=== PATIENT | female | born 1960 | race Caucasian/White ===

== ENCOUNTER → 2017-12-22 09:17 | Outpatient (CLI) | payer OTHER, SELFPAY ==
--- NOTE | 2017-12-22 | DI.MG.S_ITS ---
BILATERAL DIGITAL SCREENING MAMMOGRAM 3D/2D WITH CAD: 12/22/2017 CLINICAL: Routine screening. Comparison is made to exams dated: 09/23/2015 mammogram, 08/03/2014 mammogram, and 07/16/2013 mammogram - Located [facility]. There are scattered fibroglandular elements in both breasts. Current study was also evaluated with a Computer Aided Detection (CAD) system. No significant masses, calcifications, or other findings are seen in either breast. There has been no significant interval change. IMPRESSION: NEGATIVE There is no mammographic evidence of malignancy. A 1 year screening mammogram is recommended. This exam was interpreted at Station ID: [id number]. NOTE: For mammograms, a report in lay terms will be sent to the patient. Approximately 15% of breast malignancies will not be visualized mammographically. In the management of a palpable breast mass, a negative mammogram must not discourage biopsy of a clinically suspicious lesion. Electronically Signed By: Janie evans/shelley:12/25/2017 09:12:50 letter sent: Normal Exam ACR BI-RADS Category 1: Negative 3341F
== END ==
PROVIDERS: PCP Internal Medicine; Visit Provider Internal Medicine
DX: Z12.31 Encounter for screening mammogram for malignant neoplasm of breast (principal)
CPT/HCPCS: 77063; 77067

== ENCOUNTER → 2018-08-30 14:10 | Outpatient (CLI) | payer OTHER, MEDICAID, SELFPAY | PROVIDERS: PCP Internal Medicine; Visit Provider Nurse Practitioner Family | DX: M85.852 Other specified disorders of bone density and structure, left thigh (principal); Z78.0 Asymptomatic menopausal state | CPT/HCPCS: 77080 ==

== ENCOUNTER → 2019-05-08 16:02 | Outpatient (CLI) | payer OTHER, MEDICAID, SELFPAY ==
--- NOTE | 2019-05-08 | DI.ECHO.S_ITS ---
[facility] +---------+ : : [address] [place] [place] : : : : [id number] : : : : Phone: [phone]+ Echocardiogram Report + + :Name: NYDIA CUBA Study Date: 05/08/2019 Height: 68 in : :[facility] Weight: 167 lb : : Gender: Female BSA: 1.9 m2 : :: 1960 Age: 58 yrs BP: 165/105 mmHg: :Reason For Study: SOB : : Performed By: Ted Johnson : :Referring: TIM YANCEY : + + Interpretation Summary The ejection fraction is estimated to be 60-65%. There is no significant valvular heart disease. Procedure: A two-dimensional transthoracic echocardiogram with color flow and Doppler was performed. The study quality was technically good. There is no prior echocardiogram noted for this patient. The patient was in normal sinus rhythm during the exam. Left Ventricle: The left ventricle is normal in size. There is normal left ventricular wall thickness. The ejection fraction is estimated to be 60-65%. There are no focal wall motion abnormalities. Right Ventricle: The right ventricle is normal in size and function. Atria: The left atrium is mildly dilated. Right atrial size is normal. The interatrial septum is intact with no evidence for an atrial septal defect. Mitral Valve: The mitral valve is normal in structure and function. There is trace mitral regurgitation. Aortic Valve: The aortic valve is trileaflet. The aortic valve opens well. No aortic regurgitation is present. Tricuspid Valve: The tricuspid valve is normal in structure and function. No tricuspid regurgitation. Pulmonary artery pressures cannot be estimated because of the lack of a measurable TR jet velocity. Pulmonic Valve: The pulmonic valve is not well visualized. There is trace pulmonic regurgitation. Great Vessels: The aortic root is normal size. The ascending aorta is mildly enlarged. The pulmonary artery is normal size. The IVC is of normal diameter and collapses greater than 50% with a sniff. This suggests a low right atrial pressure of 3 mm Hg. Pericardium/ Pleura There is no pericardial effusion. There is no pleural effusion. MMode/2D Measurements & Calculations LVIDd: 4.6 cm LVOT diam: 2.1 cm LVIDs: 2.8 cm Ao root diam: 3.3 cm FS: 39.6 % Aortic Jxn: 2.7 cm EPSS: 0.25 cm asc Aorta Diam: 3.7 cm IVSd: 0.71 cm Ao Arch Diam (Prox Trans): 2.8 cm LVPWd: 0.65 cm LV spain. diameter/BSA (cm/m^2): 2.4 LV sys. diameter/BSA (cm/m^2): 1.5 LA dimension: 3.3 cm RA long axis: 4.6 cm LA A2 area: 22.2 cm2 RA area: 17.1 cm2 LA A4 area: 22.0 cm2 RA vol: 53.5 ml LA length (vol): 5.7 cm RA : 28.3 ml/m2 LA vol: 71.9 ml IVC diam: 2.0 cm LA vol index: 38.0 ml/m2 RVD1 (basal): 3.8 cm RVD2 (mid): 3.5 cm Doppler Measurements & Calculations Ao V2 max: 129.9 cm/sec LVOT Max John: 92.6 cm/sec Ao V2 mean: 96.3 cm/sec LV V1 max P.4 mmHg Ao max P.8 mmHg LV V1 VTI: 20.5 cm Ao mean P.1 mmHg SUNSHINE(I,D): 2.5 cm2 Ao V2 VTI: 27.2 cm SUNSHINE(V,D): 2.4 cm2 sev ratio: 0.75 SUNSHINE indexed to BSA (cm^2/m^2): 1.3 MV E max john: 84.7 cm/sec PA V2 max: 96.3 cm/sec MV A max john: 70.6 cm/sec PA V2 mean: 69.2 cm/sec MV E/A: 1.2 PA mean P.1 mmHg Med Peak E' John: 9.1 cm/sec PA pr(Accel): 19.1 mmHg E/E' med: 9.3 PA Accel Time: 0.13 sec Lat Peak E' John: 11.5 cm/sec E/E' lat: 7.4 E/e' average: 8.4 MV dec time: 0.17 sec SV(LVOT): 69.4 ml Reading Physician:09:29 AM
== END ==
PROVIDERS: Family Provider Nurse Practitioner Family; PCP Nurse Practitioner Family; Visit Provider Nurse Practitioner Family
DX: R06.02 Shortness of breath (principal); I77.89 Other specified disorders of arteries and arterioles; R42 Dizziness and giddiness; I10 Essential (primary) hypertension; E78.2 Mixed hyperlipidemia; R73.03 Prediabetes
CPT/HCPCS: 93306

== ENCOUNTER → 2020-02-04 12:09 | Outpatient (CLI) | payer OTHER, SELFPAY ==
--- NOTE | 2020-02-04 | DI.MG.S_ITS ---
BILATERAL DIGITAL SCREENING MAMMOGRAM 3D/2D WITH CAD: 02/04/2020 CLINICAL: Routine screening. Comparison is made to exams dated: 12/22/2017 mammogram - [facility], 09/23/2015 mammogram, and 08/03/2014 mammogram - [facility]. There are scattered fibroglandular elements in both breasts. Current study was also evaluated with a Computer Aided Detection (CAD) system. No significant masses, calcifications, or other findings are seen in either breast. There has been no significant interval change. IMPRESSION: NEGATIVE There is no mammographic evidence of malignancy. A 1 year screening mammogram is recommended. This exam was interpreted at Station ID: [id number]. NOTE: For mammograms, a report in lay terms will be sent to the patient. Approximately 15% of breast malignancies will not be visualized mammographically. In the management of a palpable breast mass, a negative mammogram must not discourage biopsy of a clinically suspicious lesion. Electronically Signed By: Janie evans/shelley:02/04/2020 15:45:19 letter sent: Normal Exam ACR BI-RADS Category 1: Negative 3341F
== END ==
PROVIDERS: Family Provider Nurse Practitioner Family; PCP Student in an Organized Health Care Education/Training Program; Referring Provider Student in an Organized Health Care Education/Training Program; Visit Provider Student in an Organized Health Care Education/Training Program
DX: Z12.31 Encounter for screening mammogram for malignant neoplasm of breast (principal)
CPT/HCPCS: 77063; 77067

== ENCOUNTER → 2021-02-16 11:09 | Outpatient (CLI) | payer OTHER, SELFPAY ==
--- NOTE | 2021-02-16 | DI.MG.S_ITS ---
BILATERAL DIGITAL SCREENING MAMMOGRAM 3D/2D WITH CAD: 02/16/2021 CLINICAL: Routine screening. Family history of breast cancer. Comparison is made to exams dated: 02/04/2020 mammogram, 12/22/2017 mammogram - [facility], and 09/23/2015 mammogram - [facility]. There are scattered fibroglandular elements in both breasts. Current study was also evaluated with a Computer Aided Detection (CAD) system. No significant masses, calcifications, or other findings are seen in either breast. There has been no significant interval change. IMPRESSION: NEGATIVE There is no mammographic evidence of malignancy. A 1 year screening mammogram is recommended. This exam was interpreted at Station ID: [id number]. NOTE: For mammograms, a report in lay terms will be sent to the patient. Approximately 15% of breast malignancies will not be visualized mammographically. In the management of a palpable breast mass, a negative mammogram must not discourage biopsy of a clinically suspicious lesion. Electronically Signed By: Jacob leiva/shelley:02/16/2021 11:33:00 letter sent: Normal Exam ACR BI-RADS Category 1: Negative 3341F
== END ==
PROVIDERS: Family Provider Nurse Practitioner Family; PCP Student in an Organized Health Care Education/Training Program; Referring Provider Student in an Organized Health Care Education/Training Program; Visit Provider Student in an Organized Health Care Education/Training Program
DX: Z12.31 Encounter for screening mammogram for malignant neoplasm of breast (principal); Z80.3 Family history of malignant neoplasm of breast
CPT/HCPCS: 77063; 77067

== ENCOUNTER → 2021-04-12 11:05 | Outpatient (CLI) | payer OTHER, SELFPAY | PROVIDERS: Family Provider Nurse Practitioner Family; PCP Student in an Organized Health Care Education/Training Program; Referring Provider Student in an Organized Health Care Education/Training Program; Visit Provider Student in an Organized Health Care Education/Training Program | DX: M85.89 Other specified disorders of bone density and structure, multiple sites (principal); Z78.0 Asymptomatic menopausal state; M85.851 Other specified disorders of bone density and structure, right thigh | CPT/HCPCS: 77080 ==

== ENCOUNTER → 2021-04-13 11:36 | Outpatient (CLI) | payer OTHER, SELFPAY ==
[2021-04-13 12:48] LABS: COVID19 -Nasal RAPID Negative (Negative)
== END ==
PROVIDERS: Family Provider Nurse Practitioner Family; PCP Student in an Organized Health Care Education/Training Program; Visit Provider Nurse Practitioner Family
DX: Z20.822 Contact with and (suspected) exposure to COVID-19 (principal)
CPT/HCPCS: 87635

== ENCOUNTER 2021-04-15 13:19 | Day surgery (SDC) | payer OTHER, SELFPAY ==
[2021-04-15] VITALS (7 sets, daily range): BP systolic 114–155; BP diastolic 66–89; PULSE 58–88; RESP 10–16; TEMP 36.8–37.1; O2SAT 99–100; BMI 24.0
--- NOTE | 2021-04-15 | PATH_ITS ---
[facility] Accession Number: [id number] . 01 Material submitted: . colon - CECUM POLYP . 01 Clinical history: . SDC . 02 Diagnosis: Cecum, Polyp, Biopsy: Tubular adenoma. MRV 04/19/2021 1117 Local . 02 Electronically signed: . Alexandra Rocha MD, Pathologist NPI- [id number] . 01 Gross description: . CECUM POLYP: Received in formalin is 1 fragment(s) of rosas, soft tissue measuring 0.3 x 0.2 x 0.1 cm submitted entirely in 1 cassette(s) /SUNSHINE 04/16/2021 0733 Local . 02 Pathologist provided ICD-10: D12.0 . 02 CPT . 570944 Performed at: 01 [facility] [address], [place], [place] [id number] MD Jacob Barrientos MD Phone: [phone] Performed at: 02 [facility] [address] [place], [place] [id number] MD Alexandra Rocha MD Phone: [phone]
--- NOTE | 2021-04-15 11:58 | PM.HP.1 ---
History of Present Illness History of Present Illness Date Patient Seen: 04/15/21 Chief complaint: SDC Narrative: 60 Years Old Female seen today for consideration of a screening colonoscopy. Last colonoscopy in 2016 performed for screening was significant for a 6 mm cecal tubular adenoma, diverticulosis, and grade 1 internal hemorrhoids. She required 8 mg of Versed and 200 mg fentanyl. She was uncomfortable with scope movement despite adequate sedation. There have been no lower GI symptoms suggesting disease such as change in bowel habits, bleeding, abdominal pain or anemia. Her paternal grandfather had colon cancer in his 40s. Overall health issues have been stable, including no major cardiac events for at least 6 weeks. Past Medical History: Menopause; 2011 Last Pap: 09/23/17 Hx of high WBC on older paps in 1997 Depression Alcohol Problems Hypertension Hyperlipidemia STD Pre-Diabetic Patel's Palsy Past Surgical History: Tonsillectomy - 1971 Dental Implants - 2001, 2017 Uterine Fibroid Embolization - 2011 Maxillary and Mandibular Osteotomities - 1998 Luis F Bunionectomy - 1996 Arthroscopic Surgery (left knee) - 1985 Colonoscopy, 2015 Family History: Father: Wagner Arce (1920) age 88 - CHF, Vascular disease, hypertension, hyperlipidemia, prostate cancer Mother: Tameka De La Cruzkellydanny (1926) age 69 - Parkinson's Siblings: Jessica Leslie (1951), Deven Claude (1953) - Diabetes, Morgan Claude (1958) - All have hyperlipidemia and hypertension Social History: Marital Status: Domestic Partner - Rosalio Yvette - 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 Meds Home Medications and Allergies Home Medications Medication Instructions Recorded Confirmed Type HYDROCHLOROTHIAZIDE (Hydrodiuril / 12.5 mg PO QDAY #0 02/25/10 04/15/21 History Hctz) LISINOPRIL (Zestril / Prinivil) 10 mg PO Q DAY #0 02/25/10 History fluoxetine 20 mg capsule (Prozac) 20 mg PO DAILY 04/15/21 04/15/21 History Allergies Allergy/AdvReac Type Severity Reaction Status Date / Time No Known Drug Allergies Allergy Verified 04/15/21 13:37 Review of Systems Review of Systems Narrative: See HPI. Exam Narrative Exam Narrative: General: well developed, well nourished, in no acute distress, Head: normocephalic and atraumatic, Lungs: normal respiratory effort, clear bilaterally to auscultation, no wheezes rales or rhonchi. (unchanged from 12/14/2020) Heart: normal rate and regular rhythm, no murmurs, rubs, gallops, or clicks, Abdomen: abdomen soft and non-tender without masses, organomegaly, or abdominal wall hernias, bowel sounds positive. (unchanged from 12/14/2020) Skin: intact without suspicious lesions or rashes, Psych: alert and cooperative; normal mood and affect; normal attention span and concentration; cognition, remote and recent memory appear to be intact, Assessment & Plan Assessment & Plan narrative: 1. Family history of colon cancer 2. Screening for colon cancer 3. Alcohol dependence Plan for colonoscopy. The nature and character of the procedure as well as anticipated results were discussed. The possibility of not completing the procedure was also discussed. Possible complications including aspiration pneumonia, bleeding, perforation and reaction to medications either for sedation or preparation and missed lesions were discussed. Questions were answered and proceeding to the colonoscopy was elected. Informed consent signed. Will consult MD anesthesia on this patient with history of difficult sedation at last colonoscopy. I sincerely appreciate the referral allowing me to participate in this patient's care. Please contact me with any questions or concerns.
--- NOTE | 2021-04-15 12:00 | PM.OP.ENDO ---
Operative Date/Time/Diagnoses Date of procedure: 04/15/21 Procedure Notes SCOAP/Timeout: 2:20 p.m. Procedure in detail: ENDOSCOPIST: Nalini Cannon MD Anesthesiologist: Dr. Dalton Sedation start time: 2:31 p.m. Sedation end time: 2:46 p.m. PROCEDURE: Colonoscopy with biopsy, cold INDICATIONS: 1. Family history of colon cancer 2. Screening for colon cancer MEDICATION: Levsin 0.125 mg sublingual, incremental doses of Versed and fentanyl until appropriate level sedation achieved. ASA CLASS: 2 CECAL WITHDRAWAL TIME: 7 minutes COMPLICATIONS: None. EXTENT OF PROCEDURE: Cecum. QUALITY OF PREP: Good with portions of liquid stool. PROCEDURE: Prior to insertion of the colonoscope, a digital rectal examination was accomplished with circumferential palpation of the distal rectal mucosa without significant findings being noted. The high-definition pediatric colonoscope was passed into the rectum in the usual fashion and advanced over to the cecum without difficulty. The ileocecal valve, appendiceal stoma, and medial wall all could be inspected and a 2 mm polyp was seen and removed with cold biopsy forceps, excellent hemostasis. ASCENDING COLON: As the colonoscope was withdrawn, care was taken to expose and inspect the haustral folds and no abnormalities were seen. HEPATIC FLEXURE: Normal, no polyps, diverticula or other abnormalities. TRANSVERSE COLON: Normal, no polyps, diverticula or other abnormalities. DESCENDING COLON: Normal, no polyps, diverticula or other abnormalities. SIGMOID COLON: Minor diverticulosis, otherwise, no polyps, or other abnormalities. RECTUM: Normal. J maneuver was produced. There was no significant perianal disease. The J maneuver was broken. The remainder of the rectum was inspected and there was grade 1 internal hemorrhoid disease. The scope was withdrawn. IMPRESSION: 1. Cecal polyp x1, 2 mm, removed with cold biopsy forceps 2. Grade 1 internal hemorrhoids 3. Sigmoid diverticulosis, minor PLAN: 1. Follow-up in clinic status post pathology results. The possibility of a missed lesion including a malignancy has been discussed with the patient previously. Potential alarm symptoms have been discussed and should be reported immediately.
[2021-04-15] MEDS: HYOSCYAMINE 0.125 MG TABLET PO (13:48)
[2021-04-15] MEDS: LACTATED RINGERS 1,000 ML 200 ML IV (13:56)
== END 2021-04-15 13:48 | disposition home or self-care (01) ==
PROVIDERS: Family Provider Nurse Practitioner Family; PCP Student in an Organized Health Care Education/Training Program; Referring Provider Student in an Organized Health Care Education/Training Program; Visit Provider Student in an Organized Health Care Education/Training Program
PROC: 0DJD8ZZ Inspection of Lower Intestinal Tract, Via Natural or Artificial Opening Endoscopic (ICD-10-PCS; CPT 45378; principal; 2021-04-15 14:30)
DX: Z12.11 Encounter for screening for malignant neoplasm of colon (principal); K57.30 Diverticulosis of large intestine without perforation or abscess without bleeding; D12.0 Benign neoplasm of cecum; K64.0 First degree hemorrhoids; Z86.010 Personal history of colon polyps; Z80.0 Family history of malignant neoplasm of digestive organs; I10 Essential (primary) hypertension; E78.5 Hyperlipidemia, unspecified; F32.9 Major depressive disorder, single episode, unspecified; R73.03 Prediabetes; F10.20 Alcohol dependence, uncomplicated
CPT/HCPCS: 45380